=== PATIENT | female | born 1975 | race Caucasian/White ===

== ENCOUNTER 2021-11-18 16:00 | Emergency (ER) | payer MEDICARE, MEDICAID ==
[~2021-11-18] VITALS: Ht 165.1 cm; Wt 110.0 kg
[~2021-11-18 16:00] MED LIST: ALEVE 220MG220 MG PO; AMOXICILLIN 8751 TAB PO; ASPIRIN E.C. 8181 MG PO; ATIVAN 0.50.5 MG/TAB PO; BENADRYL25 M2 PO; BUTALB-ACETAMIN-CAFF PO; CARAFATE 1GM1 G PO; CATAPRES 0.1MG0.1 MG PO; CEFTIN500 MG PO; COLACE 100100 MG/CAP PO; DEPAKOTE500 MG PO; DESYREL 100MG100 MG PO; DESYREL DIVIDO300 MG PO; DILAUDID 4MG TAB4 MG PO; DOXYCYCLINE 10100 MG PO; ESTRACE 1MG1 MG/TAB PO; FLEXERIL 1010 MG/TAB PO; FLEXERIL5 MG PO; HALDOL 2MG T2 MG/TAB PO; INDERAL40 MG PO; ISORDIL TITRADO30 MG PO; KEPPRA 500MG500 MG PO; KLONOPIN2 MG PO; LAMICTAL ODT200 MG MM; LASIX 20MG TABL20 MG PO; LEXAPRO20 MG PO; LIORESAL 1010 MG/TAB PO; LOVAZA1 GM PO; MELATONIN EXTRA1 TAB PO; MELATONIN1 MG PO; MULTIVITAMIN FO1 CAP PO; NEURONTIN300 MG/CAP PO; NORCO 325 MG-101 TAB PO; NORCO 325 MG-7.1 TAB PO; ONE-A-DAY ESSE1 EACH PO; PHENERGAN 25 TA25 MG PO; PHENERGAN12.5 MG/SU RC; PRIL40 PO; PROTONIX 40MG T40 MG PO; PROZAC 20MG20 MG PO; PROZAC40 MG PO; REGLAN 10MG10 MG/TAB PO; REQUIP 1MG T1 MG/TAB PO; REQUIP0.25 MG PO; REXULTI4 MG PO; SEROQUEL 200MG200 MG PO; SYNTHROID 0.0.025 MG PO; TRANSDERM-0.5 MG/21 TD; TYLENOL PM EXTR1 TA1 PO; ULTRAM 50MG TAB50 MG PO; VITAMIN D32000 I1 PO; XANAX 1MG1 MG PO; ZOFRAN ODT4 MG PO; ZOFRAN ODT8 MG PO; ZOLOFT 100MG100 MG PO; [UNRECOGNIZED DRUG - OTHER] VG
[2021-11-18 16:08] VITALS: TEMP 97.7
[2021-11-18 17:26] LABS: BASO % 0.5 % (0.0-2.0); EOS # 0.1 K/mm3 (0.0-0.7); GRAN # 3.5 K/mm3 (1.4-6.5); GRAN % 54.8 % (42.2-75.2); MEAN CELL VOLUME 81 fl (80.0-100.0); MEAN CORPUSCULAR HEMOGLOBIN 26 pg (27-31); MEAN CORPUSCULAR HGB CONC 32 g/dl (33.0-37.0); MONO # 0.7 K/mm3 (0.1-0.6); MONO % 11.4 % (1.7-9.3); PLATELET COUNT 207 K/mm3 (130-400); RED BLOOD COUNT 4.19 M/mm3 (4.10-5.30); REDCELL DISTRIBUTION WIDTH-CV 15.9 % (11.5-14.5)
[2021-11-18 17:29] LABS: HEMATOCRIT 34.1 % (37.0-47.0)
[2021-11-18 17:41] LABS: ALANINE AMINOTRANSFERASE 18 U/L (0-55); ALBUMIN 3.8 gm/dL (3.5-5.0); ALKALINE PHOSPHATASE 71 U/L (40-150); ANION GAP 9 mmol/L (7-16); AST,SGOT 17 U/L (5-34); BILIRUBIN,TOTAL 0.6 mg/dL (0.2-1.2); BLOOD UREA NITROGEN 11 mg/dL (7-19); CALCIUM 8.8 mg/dL (8.4-10.2); CARBON DIOXIDE 23 mmol/L (22-29); CHLORIDE 108 mmol/L (98-107); CREATININE, serum 0.85 mg/dL (0.57-1.11); GLUCOSE 95 mg/dL (70-99); POTASSIUM 3.9 mmol/L (3.5-4.5); SODIUM 140 mmol/L (136-145); TOTAL PROTEIN 6.3 gm/dL (6.2-8.1)
[2021-11-18 17:49] LABS: TROPONIN-I < 0.010 ng/mL (0.00-0.033)
[2021-11-18 18:32] VITALS: BP 113/68; PULSE 76
== END 2021-11-18 18:32 | disposition home or self-care (01) ==
LOC: COL.ER 16:00
PROVIDERS: Physician Assistant
DX: I95.9 Hypotension, unspecified (principal); Z91.040 Latex allergy status
CPT/HCPCS: J7030

== ENCOUNTER → 2021-12-02 | Outpatient (CLI) | payer MEDICARE, MEDICAID ==
[~2021-12-02] MED LIST changes: +ATARAX 25MG25 MG/TAB PO; +LIPITOR 40MG TA40 MG PO; +MASON NATURAL325 MG PO; +PRISTIQ 50 MG T50 MG PO; +PROAMATINE 5MG T5 MG PO; +TYLENOL 500MG500 MG PO; +ZYPREXA 5MG5 MG PO
== END ==
LOC: MC.RAD 08:25
DX: Z12.31 Encounter for screening mammogram for malignant neoplasm of breast (principal)

== ENCOUNTER 2021-12-03 06:36 | Day surgery (SDC) | payer MEDICARE, MEDICAID ==
[~2021-12-03] VITALS: Ht 165.1 cm; Wt 107.8 kg
[~2021-12-03 06:36] MED LIST changes: -ATARAX 25MG25 MG/TAB PO; -LIPITOR 40MG TA40 MG PO; -MASON NATURAL325 MG PO; -PRISTIQ 50 MG T50 MG PO; -PROAMATINE 5MG T5 MG PO; -TYLENOL 500MG500 MG PO; -ZYPREXA 5MG5 MG PO
[2021-12-03 06:56] VITALS: BP 130/74; PULSE 93; TEMP 98.4
[2021-12-03] MEDS ORDERED: LIPITOR 40MG TA40 MG PO (07:01)
[2021-12-03] MEDS ORDERED: ATARAX 25MG25 MG/TAB PO (07:02)
[2021-12-03] MEDS ORDERED: ZYPREXA 5MG5 MG PO (07:03)
[2021-12-03] MEDS ORDERED: PROAMATINE 5MG T5 MG PO (07:03)
[2021-12-03] MEDS ORDERED: MASON NATURAL325 MG PO (07:04)
[2021-12-03] MEDS ORDERED: ULTRAM 50MG TAB50 MG PO (07:04)
[2021-12-03] MEDS ORDERED: FLEXERIL5 MG PO (07:05)
[2021-12-03] MEDS ORDERED: PHENERGAN 25 TA25 MG PO (07:06)
[2021-12-03] MEDS ORDERED: TYLENOL 500MG500 MG PO (07:06)
[2021-12-03] MEDS ORDERED: PRISTIQ 50 MG T50 MG PO (07:06)
[2021-12-03 08:40] VITALS: BP 119/73; PULSE 83; TEMP 98.3
--- NOTE | 2021-12-03 08:40 | NUR ---
PATIENT TRANSPORTED PER CART FROM ENDO SUITE TO BAY 2 ACCOMPANIED BY ENDO RN. PATIENT AMBULATED FROM CART TO CHAIR WITH 1 ASSIST AND STEADY GAIT. IN ROOM. MONITORS APPLIED. VSS ON ROOM AIR. VÍCTOR TALKS WITH STAFF AND . PATIENT GIVEN CRACKERS AND COFFEE.
[2021-12-03 08:45] VITALS: BP 108/59; PULSE 81
--- NOTE | 2021-12-03 08:45 | NUR ---
DR US IN ROOM AND SPEAKS WITH PATIENT AND .
[2021-12-03 08:53] VITALS: TEMP 98.3
[2021-12-03 09:00] VITALS: BP 124/74; PULSE 93
--- NOTE | 2021-12-03 09:00 | NUR ---
VSS ON ROOM AIR. PATIENT TOLERATES CRACKERS AND PEANUT BUTTER WITHOUT PROBLEMS. PATIENT TALKS WITH . PATIENT DENIES PROBLEMS.
[2021-12-03 09:15] VITALS: BP 110/90; PULSE 94
--- NOTE | 2021-12-03 09:15 | NUR ---
VSS ON ROOM AIR. PATEINT STATES READY TO GO HOME. DENIES PROBLEMS. IV DC'D WITH CATHETER TIP INTACT. PRESSURE AND BANDAGE APPLIED. PATIENT CHANGES INTO STREET CLOTHES. DISCHARGE INSTRUCTIONS GIVEN VERBAL AND DISCHARGE PACKET PROVIDED. QUESTIONS ANSWERED AND PATIENT VOICED UNDERSTANDING. PATIENT DISCHARGED PER WHEEL CHAIR ACCOMPANIED BY AMB RN TO PRIVATE VECHILE DRIVEN BY .
== END 2021-12-03 09:20 | disposition home or self-care (01) ==
LOC: SDCO 06:36
DX: Z12.11 Encounter for screening for malignant neoplasm of colon (principal); D12.5 Benign neoplasm of sigmoid colon; K63.5 Polyp of colon; K62.89 Other specified diseases of anus and rectum; G47.33 Obstructive sleep apnea (adult) (pediatric); Z99.89 Dependence on other enabling machines and devices; Z85.43 Personal history of malignant neoplasm of ovary; Z87.891 Personal history of nicotine dependence; Z90.49 Acquired absence of other specified parts of digestive tract
CPT/HCPCS: J2704; J7120

== ENCOUNTER 2022-01-13 12:50 | Emergency (ER) | payer MEDICARE, MEDICAID ==
[~2022-01-13] VITALS: Ht 165.1 cm; Wt 108.2 kg
[~2022-01-13 12:50] MED LIST changes: +ATARAX 25MG25 MG/TAB PO; +LIPITOR 40MG TA40 MG PO; +MASON NATURAL325 MG PO; +PRISTIQ 50 MG T50 MG PO; +PROAMATINE 5MG T5 MG PO; +TYLENOL 500MG500 MG PO; +ZYPREXA 5MG5 MG PO
[2022-01-13 12:55] VITALS: TEMP 97.5
[2022-01-13 13:35] LABS: BASO % 0.4 % (0.0-2.0); EOS # 0.1 K/mm3 (0.0-0.7); EOS % 1.3 % (0.0-4.0); GRAN # 2.9 K/mm3 (1.4-6.5); GRAN % 52.9 % (42.2-75.2); HEMATOCRIT 37.6 % (37.0-47.0); LYMPH % 35.3 % (20.0-51.0); MEAN CELL VOLUME 85 fl (80.0-100.0); MEAN CORPUSCULAR HEMOGLOBIN 27 pg (27-31); MEAN CORPUSCULAR HGB CONC 32 g/dl (33.0-37.0); MEAN PLATELET VOLUME 9.3 fl (7.4-10.4); MONO # 0.6 K/mm3 (0.1-0.6); MONO % 9.9 % (1.7-9.3); PLATELET COUNT 239 K/mm3 (130-400); RED BLOOD COUNT 4.44 M/mm3 (4.10-5.30); REDCELL DISTRIBUTION WIDTH-CV 15.2 % (11.5-14.5)
[2022-01-13 13:50] LABS: BILIRUBIN,TOTAL 0.8 mg/dL (0.2-1.2); C-REACTIVE PROTEIN 0.09 mg/dL (0.00-0.50); CREATININE, serum 1.03 mg/dL (0.57-1.11); POTASSIUM 4.1 mmol/L (3.5-4.5); TOTAL PROTEIN 6.8 gm/dL (6.2-8.1)
[2022-01-13 16:06] VITALS: BP 112/76
[2022-01-13] MEDS ORDERED: PHENERGAN 25 TA25 MG PO (16:20)
[2022-01-13 16:45] VITALS: PULSE 67
[2022-01-14] MEDS ORDERED: TOPAMAX50 MG PO (11:48)
== END 2022-01-13 16:45 | disposition home or self-care (01) ==
LOC: COL.ER 12:50
PROVIDERS: Family Medicine
DX: K92.0 Hematemesis (principal); Z87.891 Personal history of nicotine dependence; Z91.040 Latex allergy status
CPT/HCPCS: C9113; J2270; J2405; J7120

== ENCOUNTER → 2022-01-28 | Outpatient (CLI) | payer MEDICARE, MEDICAID ==
[~2022-01-28] MED LIST changes: +PAXLOVID CO-PA1 EACH PO; +TOPAMAX50 MG PO; +ZITHROMAX Z PA250 MG PO
== END ==
LOC: COL.RAD 09:01
DX: K92.0 Hematemesis (principal)
CPT/HCPCS: Q9967

== ENCOUNTER 2022-02-03 17:36 | Emergency (ER) | payer MEDICARE, MEDICAID ==
[~2022-02-03] VITALS: Ht 165.1 cm; Wt 108.2 kg
[~2022-02-03 17:36] MED LIST changes: -PAXLOVID CO-PA1 EACH PO; -ZITHROMAX Z PA250 MG PO
[2022-02-03 18:08] VITALS: TEMP 98.2
[2022-02-03 19:01] LABS: BASO % 0.4 % (0.0-2.0); EOS # 0.1 K/mm3 (0.0-0.7); GRAN # 2.4 K/mm3 (1.4-6.5); HEMATOCRIT 37.1 % (37.0-47.0); HEMOGLOBIN 12.1 g/dl (12.5-16.0); LYMPH # 1.7 K/mm3 (1.2-3.4); LYMPH % 34.7 % (20.0-51.0); MEAN CELL VOLUME 86 fl (80.0-100.0); MEAN CORPUSCULAR HEMOGLOBIN 28 pg (27-31); MEAN CORPUSCULAR HGB CONC 33 g/dl (33.0-37.0); MEAN PLATELET VOLUME 9.8 fl (7.4-10.4); MONO # 0.7 K/mm3 (0.1-0.6); MONO % 13.7 % (1.7-9.3); PLATELET COUNT 226 K/mm3 (130-400); RED BLOOD COUNT 4.34 M/mm3 (4.10-5.30); REDCELL DISTRIBUTION WIDTH-CV 15.3 % (11.5-14.5)
[2022-02-03 19:13] LABS: BILIRUBIN,TOTAL 0.4 mg/dL (0.2-1.2); CALCIUM 8.9 mg/dL (8.4-10.2); CREATININE, serum 0.77 mg/dL (0.57-1.11); TOTAL PROTEIN 6.9 gm/dL (6.2-8.1)
[2022-02-03] MEDS ORDERED: ZITHROMAX Z PA250 MG PO (19:53)
[2022-02-03] MEDS ORDERED: PAXLOVID CO-PA1 EACH PO (19:54)
[2022-02-03 20:04] VITALS: BP 124/81; PULSE 83
== END 2022-02-03 20:05 | disposition home or self-care (01) ==
LOC: COL.ER 17:36
PROVIDERS: Student in an Organized Health Care Education/Training Program
DX: U07.1 COVID-19 (principal); J44.9 Chronic obstructive pulmonary disease, unspecified; Z91.040 Latex allergy status

== ENCOUNTER → 2022-02-18 | Outpatient (CLI) | payer MEDICARE, MEDICAID ==
[~2022-02-18] MED LIST changes: +PAXLOVID CO-PA1 EACH PO; +ZITHROMAX Z PA250 MG PO
== END ==
LOC: COL.RAD 11:34
DX: G43.709 Chronic migraine without aura, not intractable, without status migrainosus (principal); M50.322 Other cervical disc degeneration at C5-C6 level; M40.40 Postural lordosis, site unspecified; M50.222 Other cervical disc displacement at C5-C6 level

== ENCOUNTER → 2022-03-03 | Outpatient (CLI) | payer MEDICARE, MEDICAID | LOC: MHCPAIN 08:37 | DX: M53.3 Sacrococcygeal disorders, not elsewhere classified (principal); M47.897 Other spondylosis, lumbosacral region; M79.2 Neuralgia and neuritis, unspecified | CPT/HCPCS: G0463 ==

== ENCOUNTER → 2022-03-12 | Outpatient (CLI) | payer MEDICARE, MEDICAID | LOC: MHCPAIN 12:30 | DX: M47.817 Spondylosis without myelopathy or radiculopathy, lumbosacral region (principal); M53.3 Sacrococcygeal disorders, not elsewhere classified | CPT/HCPCS: G0260; J1040; Q9967 ==

== ENCOUNTER 2022-03-30 18:27 | Emergency (ER) | payer MEDICARE, MEDICAID ==
[~2022-03-30] VITALS: Ht 165.1 cm; Wt 109.1 kg
[2022-03-30 19:05] VITALS: TEMP 97.7
[2022-03-30 19:22] LABS: COLLECTION METHOD CLEAN CATCH
[2022-03-30 19:28] LABS: PH 5 (5-8); SQUAMOUS EPITHELIAL 0-2 /hpf (0-10); URINE APPEARANCE Clear (CLEAR/HAZY); URINE BACTERIA None Seen /hpf (NONE SEEN); URINE BILIRUBIN Negative (NEGATIVE); URINE BLOOD Negative (NEGATIVE); URINE COLOR Straw (YELLOW); URINE GLUCOSE Negative (NEGATIVE); URINE KETONE Negative (NEGATIVE); URINE LEUKOCYTE ESTERASE Negative (NEGATIVE); URINE NITRATE Negative (NEGATIVE); URINE PROTEIN(semi-quant) Negative (NEGATIVE); URINE RBC 0-2 /hpf (0-2); URINE UROBILINOGEN Negative (NEGATIVE)
[2022-03-30 20:07] LABS: BASO % 0.4 % (0.0-2.0); EOS # 0.1 K/mm3 (0.0-0.7); EOS % 0.6 % (0.0-4.0); GRAN # 5.9 K/mm3 (1.4-6.5); GRAN % 62.5 % (42.2-75.2); HEMATOCRIT 39.5 % (37.0-47.0); HEMOGLOBIN 12.2 g/dl (12.5-16.0); LYMPH # 2.5 K/mm3 (1.2-3.4); LYMPH % 26.2 % (20.0-51.0); MEAN CELL VOLUME 88 fl (80.0-100.0); MEAN CORPUSCULAR HEMOGLOBIN 27 pg (27-31); MEAN CORPUSCULAR HGB CONC 31 g/dl (33.0-37.0); MEAN PLATELET VOLUME 9.5 fl (7.4-10.4); MONO % 10.1 % (1.7-9.3); PLATELET COUNT 278 K/mm3 (130-400); RED BLOOD COUNT 4.47 M/mm3 (4.10-5.30); REDCELL DISTRIBUTION WIDTH-CV 14.5 % (11.5-14.5)
[2022-03-30 20:23] LABS: ALBUMIN 4.1 gm/dL (3.5-5.0); BILIRUBIN,TOTAL 0.7 mg/dL (0.2-1.2); C-REACTIVE PROTEIN 0.11 mg/dL (0.00-0.50); CREATININE, serum 0.78 mg/dL (0.57-1.11); POTASSIUM 4.4 mmol/L (3.5-4.5); TOTAL PROTEIN 7.2 gm/dL (6.2-8.1)
[2022-03-30 22:39] VITALS: BP 135/73; PULSE 77
== END 2022-03-30 22:39 | disposition home or self-care (01) ==
LOC: COL.ER 18:27
PROVIDERS: Nurse Practitioner; Personal Emergency Response Attendant
DX: M54.50 Low back pain, unspecified (principal); Z91.040 Latex allergy status
CPT/HCPCS: J1170; J7030; Q9967

== ENCOUNTER → 2022-03-31 | Outpatient (CLI) | payer MEDICARE, MEDICAID | LOC: MHCPAIN 07:42 | DX: M47.817 Spondylosis without myelopathy or radiculopathy, lumbosacral region (principal); M54.50 Low back pain, unspecified; M53.3 Sacrococcygeal disorders, not elsewhere classified; M79.2 Neuralgia and neuritis, unspecified | CPT/HCPCS: G0463 ==

== ENCOUNTER → 2022-04-09 | Outpatient (CLI) | payer MEDICARE, MEDICAID | LOC: MHCPAIN 07:48 | DX: M47.817 Spondylosis without myelopathy or radiculopathy, lumbosacral region (principal); M54.50 Low back pain, unspecified; M53.3 Sacrococcygeal disorders, not elsewhere classified ==

== ENCOUNTER → 2022-05-21 | Outpatient (CLI) | payer MEDICARE, MEDICAID | LOC: MHCPAIN 05-04 15:11 | DX: M47.817 Spondylosis without myelopathy or radiculopathy, lumbosacral region (principal); M54.50 Low back pain, unspecified; M53.3 Sacrococcygeal disorders, not elsewhere classified | CPT/HCPCS: G0463 ==

== ENCOUNTER 2022-06-26 10:16 | Emergency (ER) | payer MEDICARE, MEDICAID ==
[~2022-06-26] VITALS: Ht 165.1 cm; Wt 100.0 kg
[~2022-06-26 10:16] MED LIST changes: +AIMOVIG AU70 MG/1 ML SQ; +AUSTEDO12 MG PO; +UBRELVY50 MG PO; +ZANAFLEX CAPSULE4 MG PO
[2022-06-26 10:20] VITALS: TEMP 98
[2022-06-26 11:00] VITALS: BP 102/60; PULSE 65
== END 2022-06-26 11:00 | disposition home or self-care (01) ==
LOC: COL.ER 10:16
DX: I95.9 Hypotension, unspecified (principal); Z91.040 Latex allergy status

== ENCOUNTER → 2022-06-29 | Outpatient (CLI) | payer MEDICARE, MEDICAID | LOC: MHCPAIN 12:34 | DX: M47.817 Spondylosis without myelopathy or radiculopathy, lumbosacral region (principal); M54.59 Other low back pain; M53.3 Sacrococcygeal disorders, not elsewhere classified | CPT/HCPCS: G0463; J2250; J3010 ==

== ENCOUNTER 2022-07-01 10:00 | Outpatient (RCR) | payer MEDICARE, MEDICAID ==
[2022-06-24 11:21] VITALS: BP 72/56; PULSE 53; TEMP 97.4
[2022-06-24 12:13] VITALS: BP 84/66; PULSE 64
--- NOTE | 2022-06-24 12:15 | NUR ---
Reported to Lexi, primary nurse patient's vitals.See flow sheet.Vitals wer obtained via manual check.Per Lexi,she has message left at office,awaiting return phone call.This nurse encouraged pt to stay until return call from office.
--- NOTE | 2022-06-25 11:11 | NUR ---
This nurse spoke with pt via phone.per pt reports she is to have a blood pressure check at office tomorrow prior to her Venofer infusion.
--- NOTE | 2022-06-26 11:12 | NUR ---
Per report from BERTIN Glass pt was sent to Emergency room for hypotension.Per Maria Luisa,pt stable to transfer to [facility] for iron infuion.Call received from office nurse Heather, requesting 1 L IV fluids while in [facility].Ok to infuse while at [facility] per Heather, Dr Olvera's nurse in addition to her iron infusion.Pt arrived via wheelchair on her own home O2 at 3L via nasal cannula.Pt transferred to recliner with standby Assist.
[2022-06-26 11:40] VITALS: BP 91/80; PULSE 63
[2022-06-26 12:27] VITALS: BP 89/63; PULSE 63
[2022-06-29 10:33] VITALS: BP 80/55; PULSE 65; TEMP 97.7
--- NOTE | 2022-06-29 11:29 | NUR ---
BP obtained with manual cuff to left upper arm. Pt states her typical readings are 90s/70s. She denies dizziness or other complaints with today's reading. Dynamap machine was unable to obtain reading after 3 attempts.
--- NOTE | 2022-06-29 12:40 | NUR ---
Pt states she has appt at [facility] at 1:45. She requests IV be left in for procedure. Site padded and wrapped with coban by MARQUIS Bryson after completion of iron infusion. Pt is offered assistance out, she declines stating her is waiting in radiology waiting room for her. She exits with steady gait on her own oxygen.
[~2022-07-01] VITALS: Ht 165.1 cm; Wt 105.1 kg
[2022-07-01 09:59] VITALS: BP 113/76; PULSE 84; TEMP 97.7
[2022-07-01 10:40] VITALS: BP 80/53; PULSE 70
--- NOTE | 2022-07-01 10:41 | NUR ---
Pt reports feeling lightheaded. bp 80/53, hr 64, rr 16, sats 99% on 3l/nc. Pt reports that this is what happens to her 3-4 times daily. This has been ongoing for about 1 month. She reports did have a syncopal episode about 3 weeks ago. Pt remains aao x 4 at this time. wctm. pt reports has appt with pcp at 1300 today.
[2022-07-01 10:57] VITALS: BP 98/64
[2022-07-01 11:08] VITALS: BP 78/55; PULSE 55
[2022-07-01 11:17] VITALS: BP 85/58; PULSE 66
[2022-07-01 11:37] VITALS: BP 100/63; PULSE 73
--- NOTE | 2022-07-01 11:37 | NUR ---
PT TO ER VIA WHEELCHAIR AT THIS TIME. REPORT GIVEN TO JEAN MARIE RN, DUKEY RIDER IN ER. PT REMAINS ALERT AND ORIENTED, REPORTS STILL HAS LIGHTHEADEDNESS AT TIME OF TRANSFER TO ER.
[2022-07-02] MEDS ORDERED: PROAMATINE 5MG T5 MG PO (09:01)
== END 2022-07-01 11:39 | disposition still patient (30) ==
LOC: EUO 10:00
DX: D50.9 Iron deficiency anemia, unspecified (principal)
CPT/HCPCS: J1756; J7030; J7050

== ENCOUNTER 2022-07-01 11:40 | Observation (INO) | payer MEDICARE, MEDICAID ==
[~2022-07-01] VITALS: Ht 165.1 cm; Wt 100.0 kg
[2022-07-01 12:41] LABS: BASO % 0.4 % (0.0-2.0); EOS % 0.8 % (0.0-4.0); GRAN # 2.5 K/mm3 (1.4-6.5); GRAN % 50.3 % (42.2-75.2); HEMOGLOBIN 11.4 g/dl (12.5-16.0); LYMPH # 1.9 K/mm3 (1.2-3.4); LYMPH % 38.1 % (20.0-51.0); MEAN CELL VOLUME 88 fl (80.0-100.0); MEAN CORPUSCULAR HEMOGLOBIN 28 pg (27-31); MEAN CORPUSCULAR HGB CONC 33 g/dl (33.0-37.0); MEAN PLATELET VOLUME 9.9 fl (7.4-10.4); MONO # 0.5 K/mm3 (0.1-0.6); MONO % 10.4 % (1.7-9.3); PLATELET COUNT 197 K/mm3 (130-400); RED BLOOD COUNT 4.01 M/mm3 (4.10-5.30); REDCELL DISTRIBUTION WIDTH-CV 14.8 % (11.5-14.5)
[2022-07-01 12:42] LABS: HEMATOCRIT 35.1 % (37.0-47.0)
[2022-07-01 12:59] LABS: ALBUMIN 3.6 gm/dL (3.5-5.0); CALCIUM 8.6 mg/dL (8.4-10.2); CREATININE, serum 0.8 mg/dL (0.57-1.11); POTASSIUM 3.9 mmol/L (3.5-4.5); TOTAL PROTEIN 5.7 gm/dL (6.2-8.1)
[2022-07-01 15:24] VITALS: BP 95/38; PULSE 60; TEMP 97.9
[2022-07-01 16:04] VITALS: BP 123/62; PULSE 58; TEMP 97.8
[2022-07-01 20:31] VITALS: BP 102/40; PULSE 63
[2022-07-02] VITALS: BP 104/66; PULSE 72; TEMP 97.9
--- NOTE | 2022-07-02 00:10 | NUR ---
Patient assessed around 2009. Denied pain and discomfort. BP better. Denies dizziness. Requested home tizanadine, xanax, and ultram. Spoke with SHANNEN Hernandez, stated to continue to hold, and no changes made to PRN Ultram order at this time. Patient voiced understanding. In bed with call light within reach. Bed alarm on. Continues on IV fluids per orders.
[2022-07-02 04:00] VITALS: BP 104/82; PULSE 71; TEMP 98.5
[2022-07-02 06:29] LABS: BASO % 0.3 % (0.0-2.0); EOS # 0.1 K/mm3 (0.0-0.7); EOS % 1.8 % (0.0-4.0); GRAN # 1.9 K/mm3 (1.4-6.5); GRAN % 49.6 % (42.2-75.2); LYMPH # 1.5 K/mm3 (1.2-3.4); LYMPH % 37.9 % (20.0-51.0); MEAN CELL VOLUME 90 fl (80.0-100.0); MEAN CORPUSCULAR HEMOGLOBIN 28 pg (27-31); MEAN CORPUSCULAR HGB CONC 32 g/dl (33.0-37.0); MONO # 0.4 K/mm3 (0.1-0.6); MONO % 10.4 % (1.7-9.3); PLATELET COUNT 162 K/mm3 (130-400); RED BLOOD COUNT 3.88 M/mm3 (4.10-5.30)
[2022-07-02 06:31] LABS: HEMATOCRIT 34.8 % (37.0-47.0)
[2022-07-02 06:46] LABS: ALBUMIN 3.2 gm/dL (3.5-5.0); CALCIUM 8.3 mg/dL (8.4-10.2); CREATININE, serum 0.74 mg/dL (0.57-1.11); MAGNESIUM 1.9 mg/dL (1.6-2.6); PHOSPHOROUS 3.8 mg/dL (2.3-4.7); POTASSIUM 3.9 mmol/L (3.5-4.5)
[2022-07-02 07:11] VITALS: BP 131/60; PULSE 62; TEMP 97.8
[2022-07-02 08:49] VITALS: BP 104/48
[2022-07-02] MEDS ORDERED: PROAMATINE 5MG T5 MG PO (09:01)
--- NOTE | 2022-07-02 09:28 | NUR ---
Initial visit; Patient thanked Pipe Smoking Machine Operator for looking in on her, offering God's blessings and keeping her in Pipe Smoking Machine Operator's prayers. Pipe Smoking Machine Operator will look in on patient while she is here.
[2022-07-02 11:39] VITALS: BP 116/65; PULSE 57; TEMP 98.5
== END 2022-07-02 14:43 | disposition home or self-care (01) ==
LOC: COL.ER 11:40 → MEDICAL 13:02
PROVIDERS: Family Medicine; ADMIT Internal Medicine
DX: I95.89 Other hypotension (principal); G40.909 Epilepsy, unspecified, not intractable, without status epilepticus; G47.00 Insomnia, unspecified; E78.5 Hyperlipidemia, unspecified; I34.0 Nonrheumatic mitral (valve) insufficiency; F41.9 Anxiety disorder, unspecified; Z79.899 Other long term (current) drug therapy; Z87.891 Personal history of nicotine dependence; Z98.84 Bariatric surgery status
CPT/HCPCS: G0378; J7030

== ENCOUNTER → 2022-07-27 | Outpatient (CLI) | payer MEDICARE, MEDICAID | LOC: MHCPAIN 10:22 | DX: M47.817 Spondylosis without myelopathy or radiculopathy, lumbosacral region (principal); M54.50 Low back pain, unspecified; M53.3 Sacrococcygeal disorders, not elsewhere classified | CPT/HCPCS: J2250; J3010 ==

== ENCOUNTER 2022-11-10 18:22 | Emergency (ER) | payer MEDICARE, MEDICAID ==
[~2022-11-10] VITALS: Ht 162.6 cm; Wt 104.5 kg
[2022-11-10 18:27] VITALS: TEMP 98.5
[2022-11-10 19:19] LABS: BASO % 0.3 % (0.0-2.0); EOS # 0.1 K/mm3 (0.0-0.7); EOS % 0.8 % (0.0-4.0); GRAN # 3.5 K/mm3 (1.4-6.5); GRAN % 58.6 % (42.2-75.2); HEMATOCRIT 38.8 % (37.0-47.0); HEMOGLOBIN 13.4 g/dl (12.5-16.0); LYMPH # 1.8 K/mm3 (1.2-3.4); LYMPH % 29.5 % (20.0-51.0); MEAN CELL VOLUME 96 fl (80.0-100.0); MEAN CORPUSCULAR HEMOGLOBIN 33 pg (27-31); MEAN CORPUSCULAR HGB CONC 35 g/dl (33.0-37.0); MEAN PLATELET VOLUME 9.2 fl (7.4-10.4); MONO # 0.6 K/mm3 (0.1-0.6); MONO % 10.6 % (1.7-9.3); PLATELET COUNT 169 K/mm3 (130-400); RED BLOOD COUNT 4.06 M/mm3 (4.10-5.30); REDCELL DISTRIBUTION WIDTH-CV 13.2 % (11.5-14.5)
[2022-11-10 19:39] LABS: ALBUMIN 3.7 gm/dL (3.5-5.0); BILIRUBIN,TOTAL 1.1 mg/dL (0.2-1.2); CALCIUM 8.9 mg/dL (8.4-10.2); CREATININE, serum 0.8 mg/dL (0.57-1.11); POTASSIUM 3.6 mmol/L (3.5-4.5); TOTAL PROTEIN 6.2 gm/dL (6.2-8.1)
[2022-11-10 20:27] VITALS: BP 148/78; PULSE 76
== END 2022-11-10 20:27 | disposition home or self-care (01) ==
LOC: COL.ER 18:22
PROVIDERS: Nurse Practitioner Primary Care
DX: R53.81 Other malaise (principal); M25.551 Pain in right hip; M79.10 Myalgia, unspecified site; Z91.040 Latex allergy status; W19.XXXA Unspecified fall, initial encounter
CPT/HCPCS: J2270

== ENCOUNTER 2022-11-27 10:17 | Day surgery (SDC) | payer MEDICARE, MEDICAID ==
[~2022-11-27] VITALS: Ht 162.6 cm; Wt 102.0 kg
[2022-11-27] MEDS ORDERED: PHENERGAN 25 TA25 MG PO (11:10)
[2022-11-27] MEDS ORDERED: SINGULAIR 110 MG/TAB PO (11:10)
[2022-11-27 11:22] VITALS: BP 101/53; PULSE 52; TEMP 97.6
[2022-11-27 13:05] VITALS: BP 81/53; PULSE 57; TEMP 97.6
--- NOTE | 2022-11-27 13:05 | NUR ---
1305 PATIENT RETURNS TO ROOM 9 VIA CART. PATIENT IS ALERT AND ORIENTED. PATIENT AMBULATES TO RECLINER WITH THE ASSISTANCE OF 2 NURSES. RESPIRATIONS EVEN AND UNLABORED. VITAL SIGNS OBTAINED. DR. US IS WORKING ON PATIENT GETTING A CT, NOT SURE IF SHE WILL BE GETTING THAT DONE TODAY. PATIENT WILL REMAIN NPO UNTIL WE KNOW FURTHER INFORMATION. 1318 CHECKED BLOOD GLUCOSE, 78. PATIENT STATES THAT SHE FEELS FINE. 1320 THIS NURSE REVIEWED DISCHARGE INSTRUCTIONS WITH PATIENT. PATIENT VERBALIZED UNDERSTANDING WITH NO FURTHER QUESTIONS OR CONCERNS. 1325 DISCONTINUED IV FROM LEFT FOREARM WITH NO DIFFICULTIES. 1335 DOCTOR IN TO SPEAK WITH PATIENT. WAITING TO HERE BACK FROM INSURANCE FOR APPROVAL. PATIENT WOULD LIKE TO COME BACK NEXT WEEK FOR CT. 1346 PATIENT DISCHARGES FROM UNIT VIA AMBULATION. THIS NURSE ENCOURAGED PATIENT TO USE THE WHEELCHAIR D/T THE MEDICATION. PATIENT STATES THAT SITTING DOWN FOR SO LONG HAS REALLY BOTHERED HER BACK AND PREFERS TO WALK. THIS NURSE WALKED WITH PATIENT OFF UNIT AND MET WITH PATIENT .
[2022-11-27 13:20] VITALS: BP 101/58; PULSE 55
[2022-11-27 13:35] VITALS: BP 101/66; PULSE 57
== END 2022-11-27 13:46 | disposition home or self-care (01) ==
LOC: SDCO 10:17
DX: K28.9 Gastrojejunal ulcer, unspecified as acute or chronic, without hemorrhage or perforation (principal); K52.9 Noninfective gastroenteritis and colitis, unspecified; K21.00 Gastro-esophageal reflux disease with esophagitis, without bleeding; K92.0 Hematemesis; R13.10 Dysphagia, unspecified; E66.9 Obesity, unspecified; D50.9 Iron deficiency anemia, unspecified; Z98.84 Bariatric surgery status; Z87.891 Personal history of nicotine dependence
CPT/HCPCS: J2405; J2704; J7120

== ENCOUNTER 2022-12-03 11:02 | Emergency (ER) | payer MEDICARE, MEDICAID ==
[~2022-12-03] VITALS: Ht 162.6 cm; Wt 100.9 kg
[~2022-12-03 11:02] MED LIST changes: +SINGULAIR 110 MG/TAB PO
[2022-12-03 11:07] VITALS: TEMP 98.1
[2022-12-03 11:39] LABS: BASO % 0.3 % (0.0-2.0); EOS # 0.1 K/mm3 (0.0-0.7); EOS % 1.4 % (0.0-4.0); GRAN # 3.1 K/mm3 (1.4-6.5); GRAN % 53.1 % (42.2-75.2); HEMATOCRIT 43.6 % (37.0-47.0); HEMOGLOBIN 15.5 g/dl (12.5-16.0); LYMPH # 2.2 K/mm3 (1.2-3.4); LYMPH % 36.8 % (20.0-51.0); MEAN CELL VOLUME 94 fl (80.0-100.0); MEAN CORPUSCULAR HEMOGLOBIN 33 pg (27-31); MEAN CORPUSCULAR HGB CONC 36 g/dl (33.0-37.0); MEAN PLATELET VOLUME 9.2 fl (7.4-10.4); MONO # 0.5 K/mm3 (0.1-0.6); MONO % 8.2 % (1.7-9.3); PLATELET COUNT 201 K/mm3 (130-400); RED BLOOD COUNT 4.64 M/mm3 (4.10-5.30)
[2022-12-03 11:59] LABS: ALBUMIN 4.2 gm/dL (3.5-5.0); CALCIUM 9.4 mg/dL (8.4-10.2); CREATININE, serum 0.84 mg/dL (0.57-1.11); TOTAL PROTEIN 6.7 gm/dL (6.2-8.1)
[2022-12-03 12:23] LABS: TSH w REFLEX 0.941 uIU/mL (0.350-4.940)
[2022-12-03 12:35] LABS: COLLECTION METHOD CLEAN CATCH
[2022-12-03 12:46] LABS: PH 5.5 (5.0-8.5); URINE APPEARANCE Clear (CLEAR/HAZY); URINE COLOR Yellow (YELLOW); URINE GLUCOSE Negative (NEGATIVE); URINE KETONE Negative (NEGATIVE); URINE PROTEIN(semi-quant) Negative (NEGATIVE)
[2022-12-03 12:47] LABS: MUCOUS Present (NOT PRESENT); URINE BACTERIA None Seen /hpf (NONE SEEN); URINE BLOOD TRACE-INTACT (NEGATIVE); URINE NITRATE Negative (NEGATIVE); URINE RBC 0-2 /hpf (0-2)
[2022-12-03] MEDS ORDERED: BENTYL 10MG10 MG/CAP PO (13:32)
[2022-12-03 14:14] VITALS: BP 127/57; PULSE 73
== END 2022-12-03 14:14 | disposition home or self-care (01) ==
LOC: COL.ER 11:02
PROVIDERS: Emergency Medicine
DX: R10.32 Left lower quadrant pain (principal); Z90.49 Acquired absence of other specified parts of digestive tract; Z98.84 Bariatric surgery status; Z86.16 Personal history of COVID-19; Z91.040 Latex allergy status
CPT/HCPCS: J1170; J2405; J2765; J3010; J7120; Q9967

== ENCOUNTER → 2022-12-18 | Outpatient (CLI) | payer MEDICARE, MEDICAID ==
[~2022-12-18] MED LIST changes: +BENTYL 10MG10 MG/CAP PO
== END ==
LOC: COL.RAD 08:19
DX: R11.10 Vomiting, unspecified (principal); Z98.84 Bariatric surgery status

== ENCOUNTER → 2023-01-27 | Outpatient (CLI) | payer MEDICARE, MEDICAID | LOC: MHCPAIN 09:50 | DX: M54.16 Radiculopathy, lumbar region (principal); M79.2 Neuralgia and neuritis, unspecified; M47.896 Other spondylosis, lumbar region; M51.36 Other intervertebral disc degeneration, lumbar region | CPT/HCPCS: G0463 ==

== ENCOUNTER → 2023-01-28 | Outpatient (CLI) | payer MEDICARE, MEDICAID | LOC: MHCPAIN 13:03 | DX: M47.817 Spondylosis without myelopathy or radiculopathy, lumbosacral region (principal); M54.16 Radiculopathy, lumbar region | CPT/HCPCS: J1040; Q9967 ==

== ENCOUNTER 2023-10-25 10:26 | Emergency (ER) | payer MEDICARE, MEDICAID ==
[~2023-10-25] VITALS: Ht 165.1 cm; Wt 77.3 kg
[~2023-10-25 10:26] MED LIST changes: +AUSTEDO9 MG PO; +BREZTRI AEROS10.7 GM IH; +DEPAKOTE 250MG250 MG PO; +LINZESS145CAP PO; +PROAIR HFA0.09 MG/AC IH; +RANEXA 500MG T500 MG PO; +ZANAFLEX2 MG PO; +ZYRTEC 10MG10 MG PO
[2023-10-25] MEDS ORDERED: NS 1,000 ML IV ONE ×2 (11:00→11:15)
[2023-10-25 11:53] LABS: ALBUMIN 3.6 gm/dL (3.5-5.0); BILIRUBIN,TOTAL 0.8 mg/dL (0.2-1.2); CALCIUM 8.7 mg/dL (8.4-10.2); CREATININE, serum 0.8 mg/dL (0.57-1.11); POTASSIUM 3.7 mmol/L (3.5-4.5); TOTAL PROTEIN 5.7 gm/dL (6.2-8.1)
[2023-10-25 13:03] LABS: BASO % 0.4 % (0.0-2.0); EOS % 0.6 % (0.0-4.0); GRAN # 2.4 K/mm3 (1.4-6.5); GRAN % 50.6 % (42.2-75.2); HEMATOCRIT 41.5 % (37.0-47.0); HEMOGLOBIN 14.2 g/dl (12.5-16.0); LYMPH # 1.9 K/mm3 (1.2-3.4); LYMPH % 38.5 % (20.0-51.0); MEAN CELL VOLUME 100 fl (80.0-100.0); MEAN CORPUSCULAR HEMOGLOBIN 34 pg (27-31); MEAN CORPUSCULAR HGB CONC 34 g/dl (33.0-37.0); MEAN PLATELET VOLUME 9.2 fl (7.4-10.4); MONO # 0.5 K/mm3 (0.1-0.6); MONO % 9.7 % (1.7-9.3); PLATELET COUNT 147 K/mm3 (130-400); RED BLOOD COUNT 4.14 M/mm3 (4.10-5.30); REDCELL DISTRIBUTION WIDTH-CV 12.7 % (11.5-14.5)
[2023-10-25 13:40] VITALS: BP 116/82; PULSE 86
== END 2023-10-25 13:40 | disposition home or self-care (01) ==
LOC: COL.ER 10:26
PROVIDERS: Personal Emergency Response Attendant
DX: I95.9 Hypotension, unspecified (principal); Z91.040 Latex allergy status
CPT/HCPCS: J7030

== ENCOUNTER 2023-11-02 15:25 | Inpatient (IN) | payer MEDICARE, MEDICAID ==
[~2023-11-02] VITALS: Ht 165.1 cm; Wt 71.3 kg
[2023-11-02 15:46] VITALS: BP 84/65; PULSE 97; TEMP 97.6
[2023-11-02 15:47] VITALS: BP 105/69; PULSE 101
[2023-11-02] MEDS ORDERED: Ondansetron 4 MG/2 ML VIAL IV PRN ×2 (16:45→17:30)
[2023-11-02 17:00] VITALS: BP_SYST 105
[2023-11-02] MEDS ORDERED: NS 1,000 ML IV SCH (17:00)
[2023-11-02] MEDS ORDERED: levETIRAcetam 100 ML IV SCH (17:15)
[2023-11-02] MEDS ORDERED: Albuterol/Ipratropium 3 MG-0.5 MG/3 ML Neb Soln IH PRN (17:15)
[2023-11-02] MEDS ORDERED: Albuterol 0.021% Neb Soln 0.63 MG/3 ML UD IH PRN (17:30)
[2023-11-02] MEDS ORDERED: Scopolamine 1 MG Delivered 3-Day PATCH TD SCH (17:30)
[2023-11-02] MEDS ORDERED: PRISTIQ100 MG PO (17:41)
[2023-11-02] MEDS ORDERED: PRECOSE 25MG25 MG PO (17:44)
[2023-11-02] MEDS ORDERED: ATARAX 25MG25 MG/TAB PO (17:45)
[2023-11-02] MEDS ORDERED: DEPAKOTE ER 50500 MG PO (17:47)
--- NOTE | 2023-11-02 18:00 | NUR ---
PATIENT CAME TO MEDICAL A DIRECT ADMIT. PATIENT ALERT AND ORIENTED BUT FORGETFUL AT TIMES. PATIENT REPORTS HAVING LOWER BACK AND CHEST PAIN AND IT WORSENS WITH MOVEMENT. PATIENT REPORTS HAVING A MINI STROKE 2 WEEKS AGO AND A SEIZURE ON WEDNESDAY. PATIENT REPORTS FEELING DIZZINESS. PATIENT HAS SOME LEFT UPPER AND LOWER EXTREMITY WEAKNESS. SOME SLURRED SPEECH AND SHE REPORTS SHE HAS BEEN FALLING ALOT LATELY. PATIENT HAS GENERALIZED BRUISING. MULTIPLE ATTEMPS WERE DONE TO GET AN IV STARTED BUT WERE UNSUCCESSFUL AT THIS TIME. PATIENT REPORTS NEEDING OXYGEN AT NIGHT DUE TO NOCTURAL HYPOXEMIA. PATIENT HAS A GLUCOSE MONITOR ON LEFT ARM. PATIENT HAD A CRITICAL GLUCOSE OF 62 PER BLOOD WORK AND WHEN RECHEKED PATIENT WAS 108 PER FINGER STICK GLUCOSE MONITOR. CRITICAL WAS CALLED BY CHARGE NURSE TO NOTIFY DOCTOR ABOUT THE GLUCOSE LAB VALUE.
[2023-11-02 18:33] LABS: BASO % 0.2 % (0.0-2.0); EOS # 0.1 K/mm3 (0.0-0.7); EOS % 0.9 % (0.0-4.0); GRAN # 2.7 K/mm3 (1.4-6.5); GRAN % 50.2 % (42.2-75.2); HEMATOCRIT 43.1 % (37.0-47.0); HEMOGLOBIN 14.5 g/dl (12.5-16.0); LYMPH # 2.1 K/mm3 (1.2-3.4); MEAN CELL VOLUME 101 fl (80.0-100.0); MEAN CORPUSCULAR HEMOGLOBIN 34 pg (27-31); MEAN CORPUSCULAR HGB CONC 34 g/dl (33.0-37.0); MEAN PLATELET VOLUME 9.5 fl (7.4-10.4); MONO # 0.5 K/mm3 (0.1-0.6); MONO % 8.5 % (1.7-9.3); PLATELET COUNT 165 K/mm3 (130-400); RED BLOOD COUNT 4.27 M/mm3 (4.10-5.30); REDCELL DISTRIBUTION WIDTH-CV 12.8 % (11.5-14.5)
[2023-11-02] MEDS ORDERED: KLONOPIN 0.5MG0.5 MG PO (18:50)
[2023-11-02] MEDS ORDERED: BAQSIMI3 MG NS (18:53)
[2023-11-02 18:59] LABS: ALANINE AMINOTRANSFERASE 14 U/L (0-55); ALBUMIN 3.6 gm/dL (3.5-5.0); ALKALINE PHOSPHATASE 57 U/L (40-150); ANION GAP 10 mmol/L (7-16); AST,SGOT 15 U/L (5-34); BILIRUBIN,TOTAL 0.5 mg/dL (0.2-1.2); BLOOD UREA NITROGEN 12 mg/dL (7-19); C-REACTIVE PROTEIN 0.38 mg/dL (0.00-0.50); CALCIUM 8.9 mg/dL (8.4-10.2); CARBON DIOXIDE 26 mmol/L (22-29); CHLORIDE 105 mmol/L (98-107); CREATININE, serum 0.72 mg/dL (0.57-1.11); LIPASE 13 U/L (8-78); POTASSIUM 3.6 mmol/L (3.5-4.5); SODIUM 141 mmol/L (136-145); TOTAL PROTEIN 6.4 gm/dL (6.2-8.1)
[2023-11-02 19:03] LABS: GLUCOSE 62 mg/dL (70-99)
[2023-11-02 19:10] LABS: TROPONIN-I < 0.010 ng/mL (0.00-0.033)
--- NOTE | 2023-11-02 19:57 | NUR ---
Lab called with critical- accu check 62- patient reported eating an khmer ice between the time of the lab drawn and the time of the accu check. Critical blood glucose value and verification accu check of 108 called to Faustino the hospitalist.
[2023-11-02 20:00] VITALS: BP 95/7; PULSE 71; TEMP 98
[2023-11-02] MEDS ORDERED: D5LR 1,000 ML IV SCH (20:00)
--- NOTE | 2023-11-02 20:00 | NUR ---
Pt. in bed. Pt. is A&OX3, assessment complete. IV to lt. hand patent. Starte by MARQUIS Nichols. Pt. reports pain at a 10 on pain scal at a 10. ANILA Harmon notified. Pt. denies further needs, call light within reach.
[2023-11-02 21:00] VITALS: BP_SYST 105
[2023-11-02] MEDS ORDERED: Divalproex 250 MG Delayed Release TAB PO SCH (21:00)
[2023-11-02] MEDS ORDERED: traZODone 100 MG TAB PO SCH (21:00)
[2023-11-02] MEDS ORDERED: tiZANidine 4 MG TAB PO SCH (21:00)
[2023-11-02] MEDS ORDERED: Atorvastatin 40 MG TAB PO SCH (21:00)
[2023-11-02] MEDS ORDERED: ALPRAZolam 0.5 MG TAB PO SCH (21:00)
[2023-11-02] MEDS ORDERED: Ranolazine ER 500 MG TAB PO SCH (21:00)
[2023-11-02] MEDS ORDERED: NORCO 325 MG-101 TAB PO (21:11)
[2023-11-02] MEDS ORDERED: HYDROmorphone 0.5 MG/0.5 ML SYRINGE IV PRN (21:30)
[2023-11-02 23:25] VITALS: BP 94/66; PULSE 77; TEMP 98
[2023-11-03] VITALS (11 sets, daily range): BP systolic 91–110; BP diastolic 63–71; PULSE 64–73; TEMP 97.4–98.2
[2023-11-03 08:52] LABS: COLLECTION METHOD CLEAN CATCH
[2023-11-03] MEDS ORDERED: Pantoprazole 40 MG in NS 10 ML IV SCH ×2 (09:00)
[2023-11-03 09:46] LABS: PH 6.5 (5.0-8.5); URINE APPEARANCE Clear (CLEAR/HAZY); URINE COLOR Yellow (YELLOW); URINE GLUCOSE Negative (NEGATIVE); URINE KETONE Negative (NEGATIVE); URINE PROTEIN(semi-quant) Negative (NEGATIVE)
[2023-11-03 09:47] LABS: SQUAMOUS EPITHELIAL 0-2 /hpf (0-10); URINE BLOOD Negative (NEGATIVE); URINE NITRATE Negative (NEGATIVE); URINE RBC 0-2 /hpf (0-2)
[2023-11-03 10:07] LABS: BASO % 0.3 % (0.0-2.0); GRAN # 1.9 K/mm3 (1.4-6.5); GRAN % 49.2 % (42.2-75.2); HEMATOCRIT 39.1 % (37.0-47.0); LYMPH # 1.4 K/mm3 (1.2-3.4); LYMPH % 36.6 % (20.0-51.0); MEAN CELL VOLUME 101 fl (80.0-100.0); MEAN CORPUSCULAR HEMOGLOBIN 34 pg (27-31); MEAN CORPUSCULAR HGB CONC 33 g/dl (33.0-37.0); MEAN PLATELET VOLUME 9.4 fl (7.4-10.4); MONO # 0.5 K/mm3 (0.1-0.6); MONO % 12.6 % (1.7-9.3); PLATELET COUNT 136 K/mm3 (130-400); RED BLOOD COUNT 3.86 M/mm3 (4.10-5.30); REDCELL DISTRIBUTION WIDTH-CV 12.8 % (11.5-14.5)
[2023-11-03 10:28] LABS: BILIRUBIN,TOTAL 0.6 mg/dL (0.2-1.2); CALCIUM 8.6 mg/dL (8.4-10.2); CREATININE, serum 0.66 mg/dL (0.57-1.11); MAGNESIUM 1.9 mg/dL (1.6-2.6); POTASSIUM 3.9 mmol/L (3.5-4.5); TOTAL PROTEIN 5.4 gm/dL (6.2-8.1)
[2023-11-03] MEDS ORDERED: KEPPRA750 MG PO (11:18)
[2023-11-03] MEDS ORDERED: PRISTIQ100 MG PO (11:22)
[2023-11-03] MEDS ORDERED: Multimineral/Multivitamin Oral Soln 1 DOSE/15 ML PO SCH (11:34)
--- NOTE | 2023-11-03 14:11 | NUR ---
Initial visit; Patient thanked Green Marketer for looking in on her and asking about what brought her here to the hospital. Patient states she has lost well over 100 lbs in less than a year and she is here for more testing and a way for them to draw more blood without having to use a needle. She wanted prayer. Green Marketer said a prayer for comfort and encouragement and for healing of her body and spirit. Patient seemed relieved. Green Marketer will follow up. It seems as if she could benefit from a good listener when she is strong enough to do more talking.
--- NOTE | 2023-11-03 14:11 | NUR ---
NURSE AND PATIENT SCHOOL OPERATIONS MANAGER HELPED THE PATIENT TO THE RESTROOM WITH A WALKER. SCHOOL OPERATIONS MANAGER NOTED THAT PATIENT WAS MUCH STRONGER IN THE AM WHEN SHE TRANSFERRED HER TO THE RESTROOM. PATIENT HAS A HISTORY OF CVA AND DOES HAVE SOME PURCHASING AND CLAIMS SUPERVISOR RESIDUAL FROM A PREVIOUS STROKE. NOTIFIED PROVIDER. BRAIN MRI ORDERED. PATIENT IS RESTING IN BED. STILL DOING Q4 NEURO CHECKS. NO CHANGES OTHERWISE BESIDES DECREASE IN STRENGTH. IV FLUIDS LR @75 RUNNING.
--- NOTE | 2023-11-03 16:11 | NUR ---
PATIENT REQUESTED ORDERED DILAUDID .25MG THAT IS SCHEDULED TO BE GIVEN EVERY THREE HOURS NEEDED. NURSING BROUGHT THE PATIENT .25MG. WHEN NURSING ASSESSED THE PATIENT, THE PATIENT WAS FALLING ASLEEP WHILE BEING SPOKEN TOO. NURSING EXPLAINED TO THE PATIENT THAT BECAUSE SHE IS FALLING ASLEEP AND NOT FULLY AWAKE, THAT THERE IS A CONCERN FOR RESPIRATORY DEPRESSION. PATIENT SAID SHE UNDERSTOOD. CHARGE NURSE ALSO CAME IN TO ASSESS THE PATIENT. AGREED THAT PATIENT SHOULD NOT BE TAKING ANOTHER DOSE OF DILAUDID AT THIS TIME. PROVIDER WAS NOTIFIED AND A K-PAD WAS ORDERED TO PLACE ON PATIENTS CHEST AND RIGHT RIB. PLACED FOR TWENTY MINUTES.. PATIENT IS RESTING IN BED. RESPIRATIONS ARE 16.
[2023-11-03] MEDS ORDERED: HYDROmorphone 0.5 MG/0.5 ML SYRINGE IV PRN (16:15)
--- NOTE | 2023-11-03 16:15 | NUR ---
health workers met with patient and spouse, Jose #[phone] to discuss discharge planning. Worker collaborated with Dr Flowers and the plan is for patient to obtain a Benigno feeding tube and discharge home tomorrow. Worker collaborated with alysha Lacy and confirmed that patient will likely need a pump to administer feedings. Patient and spouse state that patient is normally ambulatory with a walker and that spouse assists with care needs. Patient utilized [facility] after a recent discharge from [facility], however, said that there wasn't anything they could do. Patient has advance directives. Patient's primary care provider is Dr Olvera. Discharge plan: Home with benigno feeding tube tomorrow.
--- NOTE | 2023-11-03 18:30 | NUR ---
Attempted to place bridal for dobhoff placement but unsuccessful. Patient tolerated procedure very poorly and non cooperative with procedure, moving her head back while trying place bridal. Primary nurse at bedside during attempt and aware that radiology will most likely have to place in am.
--- NOTE | 2023-11-03 20:00 | NUR ---
Assessment complete. A&Ox4-very drowsy and falling asleep during assessment. Left hand INT with fluids running-LR@75ml/hr. TELE reporting SR. Noted to be weak to left side-unsteady on feet. K pad applied to shoulders for pain. Plan of care discussed for this shift to include meds/pain control/VS/calling for questions/concerns. Call light in reach. Will monitor.
[2023-11-03] MEDS ORDERED: ALPRAZolam 0.5 MG TAB PO SCH (21:00)
[2023-11-03] MEDS ORDERED: Patient's Own Medication Item PO SCH (21:00)
[2023-11-03] MEDS ORDERED: levETIRAcetam 500 MG TAB PO SCH (21:00)
[2023-11-03] MEDS ORDERED: Divalproex 250 MG Delayed Release TAB PO SCH (21:00)
--- NOTE | 2023-11-03 23:50 | NUR ---
Report from PCT that patient states she is in pain. This nurse to room to evaluate. Patient is sound asleep and must be shaken to wake up. Patient rating pain 4/10 to pain scale-described as constant ache to shoulders. K pad given. Patient states she would like IV pain medicaitons-Patient has been hypotensive. Explained that blood pressures are low and if pain is 4/10 to try K pad at this time. Verbalizes understanding. Falls back asleep before this nurse even leaves room. Will monitor.
[2023-11-04] VITALS (13 sets, daily range): BP systolic 91–112; BP diastolic 40–78; PULSE 63–82; TEMP 97.5–98
[2023-11-04] MEDS ORDERED: Acetaminophen 325 MG TAB PO PRN (04:00)
[2023-11-04] MEDS ORDERED: Naloxone 0.4 MG/ML VIAL IV PRN (04:00)
--- NOTE | 2023-11-04 06:51 | NUR ---
Bedside report given to MARQUIS Saez.
[2023-11-04 07:04] LABS: BASO % 0.3 % (0.0-2.0); EOS % 1.2 % (0.0-4.0); GRAN # 1.6 K/mm3 (1.4-6.5); GRAN % 47.2 % (42.2-75.2); HEMOGLOBIN 13.1 g/dl (12.5-16.0); LYMPH # 1.4 K/mm3 (1.2-3.4); LYMPH % 41.2 % (20.0-51.0); MEAN CELL VOLUME 100 fl (80.0-100.0); MEAN CORPUSCULAR HEMOGLOBIN 34 pg (27-31); MEAN CORPUSCULAR HGB CONC 34 g/dl (33.0-37.0); MEAN PLATELET VOLUME 9.2 fl (7.4-10.4); MONO # 0.3 K/mm3 (0.1-0.6); MONO % 10.1 % (1.7-9.3); PLATELET COUNT 143 K/mm3 (130-400); RED BLOOD COUNT 3.91 M/mm3 (4.10-5.30); REDCELL DISTRIBUTION WIDTH-CV 12.7 % (11.5-14.5)
--- NOTE | 2023-11-04 07:09 | NUR ---
Patient to MRI at this time.
[2023-11-04 07:32] LABS: CALCIUM 8.7 mg/dL (8.4-10.2); CREATININE, serum 0.72 mg/dL (0.57-1.11); MAGNESIUM 1.9 mg/dL (1.6-2.6); POTASSIUM 3.8 mmol/L (3.5-4.5)
[2023-11-04] MEDS ORDERED: ALPRAZolam 0.5 MG TAB PO SCH (09:00)
--- NOTE | 2023-11-04 09:42 | NUR ---
Attempted to place bridal for dobhoff multiple times but unsuccessful. Wanda Mcmanus RN also attempted but unsuccessful as well. Attempted to place dobhoff to right nare but unable to advance. Attempted to place in left nare but unable to advance into esophagus as dobhoff tube would coil in the back of the patient's throat. Pt tolerated poorly and began to vomit. Primary nurse, MARQUIS Pandey at bedside and aware. Called radiology to inform that attempt x2 was unsuccessful and will need to placed by radiology.
--- NOTE | 2023-11-04 13:35 | NUR ---
Pt A&OX3 laying in bed, morning assessment complete see chart for details, morning medication administer per orders. pt has no acute concerns at this time. primary nurse notifed
--- NOTE | 2023-11-04 13:48 | NUR ---
Spoke to senior technical editorDuong, to notify of Dr. Flowers's order to have radiology replace Dobhoff. Duong notified this nurse that she spoke to Dr. Perry and he refuses to replace the dobhoff. Dr. Flowers notified and requested this nurse call Dr. Dang. This nurse notified Dr. Dang and no new orders rec'd. Dr. Dang states that she will speak with Dr. Flowers. MARQUIS Saez notified.
--- NOTE | 2023-11-04 15:03 | NUR ---
Phone call to Dr. Flowers to confirm that he had spoken to Dr. Dang. Per Dr. Flowers, encourage patient to eat, medicate for nausea as needed. MARQUIS Saez notified.
--- NOTE | 2023-11-04 15:03 | NUR ---
Uniform Cap Operator attended clinical rounds with the team and patient is being upgraded to inpatient status. Hospitalist discussed PT recommendation for SNF. SW followed up with patient and provided Medicare.gov list of SNFs. Patient stated she will discuss it with her later today. SW followed up with patient later who advised after discussion she prefers returning home with HH. Patient said she has had [facility] in the past and would like to use them again. SW faxed referral to [facility].
[2023-11-05 03:08] VITALS: BP 93/65; PULSE 77; TEMP 98
[2023-11-05 03:21] VITALS: BP_SYST 93
[2023-11-05 06:34] LABS: BASO % 0.2 % (0.0-2.0); EOS # 0.1 K/mm3 (0.0-0.7); EOS % 1.4 % (0.0-4.0); GRAN # 2.1 K/mm3 (1.4-6.5); GRAN % 47.3 % (42.2-75.2); HEMATOCRIT 38.6 % (37.0-47.0); HEMOGLOBIN 13.2 g/dl (12.5-16.0); LYMPH # 1.7 K/mm3 (1.2-3.4); LYMPH % 39.5 % (20.0-51.0); MEAN CELL VOLUME 98 fl (80.0-100.0); MEAN CORPUSCULAR HEMOGLOBIN 33 pg (27-31); MEAN CORPUSCULAR HGB CONC 34 g/dl (33.0-37.0); MEAN PLATELET VOLUME 9.7 fl (7.4-10.4); MONO # 0.5 K/mm3 (0.1-0.6); MONO % 11.4 % (1.7-9.3); PLATELET COUNT 151 K/mm3 (130-400); RED BLOOD COUNT 3.95 M/mm3 (4.10-5.30); REDCELL DISTRIBUTION WIDTH-CV 12.4 % (11.5-14.5)
--- NOTE | 2023-11-05 06:42 | NUR ---
Patient had an uneventful night. Received tylenol x1 for generalized pain. Still remains hypotensive. Tolerated some clear liquids. D5LR@75ml/hr to left hand INT infusing without difficulty. Blood sugars >100. SCD-refuses. Voiding without difficulty. KPAD PRN at bedside. Denies current questions/concerns. Call light in reach. Will monitor.
[2023-11-05 06:58] LABS: CALCIUM 8.8 mg/dL (8.4-10.2); CREATININE, serum 0.65 mg/dL (0.57-1.11); MAGNESIUM 1.9 mg/dL (1.6-2.6); POTASSIUM 3.5 mmol/L (3.5-4.5)
--- NOTE | 2023-11-05 07:48 | NUR ---
Pt laying in bed watching TV A&OX4, LR administering at 75ml/hr site clean, dry, and intact, assessment completed, pt has no acute concerns at this time.
[2023-11-05 07:50] VITALS: BP 115/67; PULSE 81; TEMP 98.2
[2023-11-05 09:28] VITALS: BP_SYST 115
[2023-11-05 10:56] VITALS: BP 102/67; PULSE 76; TEMP 98.2
--- NOTE | 2023-11-05 11:34 | NUR ---
D: Initial visit: Public Policy Professor stopped by room on rounds. Pt was resting and content with family nearby. A: Pt states she has no needs right now, but would appreciate any prayers. Public Policy Professor is praying for pt and the family. P: Public Policy Professor informed pt that if she needed anything to let her nurse know. Public Policy Professor will follow up as needed.
[2023-11-05] MEDS ORDERED: D3-5050000 IU PO (12:08)
[2023-11-05] MEDS ORDERED: ZOFRAN ODT4 MG PO (12:08)
--- NOTE | 2023-11-05 12:40 | NUR ---
patient has pain 7/10 to left leg, tylenol administered per orders, primary RN notified. patient has no other acute concerns at this time.
--- NOTE | 2023-11-05 13:10 | NUR ---
DISCHARGE INSTRUCTIONS GIVEN. PATIENT EXPRESSES UNDERSTANDING. AT BEDSIDE.
--- NOTE | 2023-11-05 13:25 | NUR ---
Discharge orders recieved, patient dressed self independently, IV removed and intact, IV site dry and clean. Observed primary RN give discharge teaching. patient A&OX4, patient taken via wheele chair to private vehical.
--- NOTE | 2023-11-05 16:21 | NUR ---
Dag Sprayer was notified that patient is going to discharge home today. PANKAJ contacted Zoe at [facility] who advised they can accept referral. PANKAJ faxed discharge orders then contacted NABOR Angulo at patient's PCP office to provide update on discharge.
--- NOTE | 2023-11-08 09:44 | NUR ---
agriculture worker received a call from Flo Pastor with [facility]. Flo stated that after administration reveiwed our referral, they decline this patient. Flo stated that they, with a previous referral, attempted to contact and see patient 5 times without success. [facility] will now not admit this patient to care as they feel she needs pyschiatric care and they don't provide a pyschiatric nurse.
--- NOTE | 2023-11-08 09:50 | NUR ---
airplane woodworker left detailed message with Dorita social services at Dr Nieves's office, regarding [facility] declining to admit patient to care.
== END 2023-11-05 13:25 | disposition home or self-care (01) | DRG 392 ==
LOC: MEDICAL 15:25
PROVIDERS: Physician Assistant; ADMIT Internal Medicine
DX: R11.2 Nausea with vomiting, unspecified (principal); R42 Dizziness and giddiness; J44.9 Chronic obstructive pulmonary disease, unspecified; R09.02 Hypoxemia; G40.909 Epilepsy, unspecified, not intractable, without status epilepticus; G62.9 Polyneuropathy, unspecified; I95.9 Hypotension, unspecified; F31.9 Bipolar disorder, unspecified; G47.00 Insomnia, unspecified; R53.81 Other malaise
CPT/HCPCS: C9113; G0378; G0379; J1170; J1953; J2405; J7030; J7121; Q3014

== ENCOUNTER 2023-12-29 07:39 | Outpatient (CLI) | payer MEDICARE, MEDICAID ==
[2023-12-29] VITALS (9 sets, daily range): BP systolic 108–133; BP diastolic 57–92; PULSE 78–98; TEMP 97.8
[~2023-12-29] VITALS: Ht 162.6 cm; Wt 76.2 kg
[~2023-12-29 07:39] MED LIST changes: +BAQSIMI3 MG NS; +D3-5050000 IU PO; +DEPAKOTE ER 50500 MG PO; +KEPPRA750 MG PO; +KLONOPIN 0.5MG0.5 MG PO; +MOVANTIK25 MG PO; +NEXIUM 40MG40 MG PO; +NITROSTAT0.4 MG/TAB SL; +OXYGEN; +PRECOSE 25MG25 MG PO; +PRISTIQ100 MG PO
[2023-12-29] MEDS ORDERED: Potassium Chloride 100 ML IV SCH (08:30)
[2023-12-29] MEDS ORDERED: ATIVAN 1MG T1 MG/TAB PO (08:51)
--- NOTE | 2023-12-29 13:04 | NUR ---
PT TOLERATED INFUSION WELL. VS REMAINED WNL. POTASSIUM LABS DRAWN BEFORE AND AFTER INFUSION. PT AMBULATED TO MAIN LOBBY WITH AFTER PROCEDURE AND WAS ACCOMPANIED BY . PORT HEPARINIZED AND DEACCESSED.
== END 2023-12-29 12:50 | disposition home or self-care (01) ==
LOC: EUO 07:39
DX: E87.6 Hypokalemia (principal)
CPT/HCPCS: J1644; J3480

== ENCOUNTER 2024-06-30 10:27 | Day surgery (SDC) | payer MEDICARE, MEDICAID ==
[~2024-06-30] VITALS: Ht 165.1 cm; Wt 77.9 kg
[~2024-06-30 10:27] MED LIST changes: +ATIVAN 1MG T1 MG/TAB PO; -KEPPRA750 MG PO; +LAMICTAL 25MG T25 MG PO; +LR 1,000 ML IV SCH; +MULTIPLE VITAMI1 CAP PO; +VITAMIN D 400400 IU PO; +XANAX 0.5MG0.5 MG PO
[2024-06-30 12:30] VITALS: BP 114/75; PULSE 75; TEMP 97.2
[2024-06-30] MEDS ORDERED: Ondansetron 4 MG/2 ML VIAL IV SCH (12:53)
[2024-06-30] MEDS ORDERED: LINZESS145CAP PO (13:06)
[2024-06-30] MEDS ORDERED: ZOFRAN8 MG PO (13:09)
--- NOTE | 2024-06-30 13:10 | NUR ---
The patient ambulated back to [place] 4 independently using a steady gait and appeared to tolerate the activity well. Vital signs obtained. Consent signed. Port a catheter accessed with a 1 in paez needle. It flushes easily with good blood return, LR infusing without difficulty. Assessment completed. Home medications reconcilled. Warm blanket provided. Mother is going to stay in the waiting room until after the procedure. Denies any further needs at this time.
[2024-06-30] MEDS ORDERED: UBRELVY100 MG PO (13:11)
[2024-06-30] MEDS ORDERED: AIMOVIG AU70 MG/1 M1 SQ (13:11)
[2024-06-30] MEDS ORDERED: ZYPREXA2.5 MG PO (13:12)
[2024-06-30] MEDS ORDERED: PRECOSE50 MG PO (13:13)
[2024-06-30] MEDS ORDERED: DULCOLAX TAB5 MG PO (13:13)
[2024-06-30] MEDS ORDERED: REQUIP 0.5MG0.5 MG PO (13:14)
[2024-06-30] MEDS ORDERED: BREZTRI AEROS10.7 GM IH (13:15)
[2024-06-30] MEDS ORDERED: ASPIRIN 81M81 MG/TA2 PO (13:15)
[2024-06-30] MEDS ORDERED: ULTRAM 50MG TAB50 MG PO (13:16)
[2024-06-30] MEDS ORDERED: EPIPEN 2-PAK1 MG/ML IM (13:17)
[2024-06-30] MEDS ORDERED: BAQSIMI3 MG NS (13:17)
[2024-06-30 14:15] VITALS: BP 106/54; PULSE 61
--- NOTE | 2024-06-30 14:58 | NUR ---
1415- PT RETURNS TO [facility] FROM EGD. ASSISTED TO RECLINER. MONITORS IN PLACE AND VS OBTAINED. REFUSED SOMETHING TO DRINK AND EAT. 1434- FLUIDS FINISHED INFUSING. DEACCESSED PORT PER PROTOCOL. BANDAID IN PLACE. 1438- DR. US IN TO TALK WITH PT. 1445- DISCHARGE INSTRUCTIONS DONE WITH PT. VERBALIZED UNDERSTANDING. 1450- PT DISCHARGED FROM HOSPITAL VIA WHEELCHAIR TO PRIVATE VEHICLE DRIVEN BY MOTHER.
== END 2024-06-30 14:50 ==
LOC: SDCO 10:27
DX: K22.89 Other specified disease of esophagus (principal); K29.01 Acute gastritis with bleeding; K92.1 Melena; R13.10 Dysphagia, unspecified; G40.909 Epilepsy, unspecified, not intractable, without status epilepticus; E11.649 Type 2 diabetes mellitus with hypoglycemia without coma; Z93.1 Gastrostomy status; Z98.84 Bariatric surgery status; Z79.899 Other long term (current) drug therapy
CPT/HCPCS: J2405; J7120